=== PATIENT | male | born 1965 | race Caucasian/White ===

== ENCOUNTER 2016-05-11 03:12 | Emergency (ER) | payer OTHER ==
[~2016-05-11] VITALS: Ht 180.3 cm; Wt 84.6 kg
[2016-05-11 03:15] VITALS: BP 167/91; PULSE 93; RESP 16; TEMP 97.8; O2SAT 99
--- NOTE | 2016-05-11 03:55 | PD ---
HPI Chief Complaint: Headache Time Seen by Provider: 03:37 Travel History International Travel<30 days: No Contact w/Intl Traveler<30days: No Traveled to known affect area: No History of Present Illness HPI The patient is a 51-year-old male that just moved here from [facility] and who has Parkinson's disease complains of pain on the right side of his head in the trigeminal nerve area for 2 days. The pain is of gradual onset. He also noted an erythematous papular rash. He has had chickenpox as a child. He did not get the zoster immunization. He denies any fever. He denies any redness or irritation of the right eye. PFSH Past Medical History Diminished Hearing: No Parkinson's Disease: Yes Tetanus Vaccination: Unknown Influenza Vaccination: No Social History Alcohol Use: Yes (OCCASSIONAL) Tobacco Use: No Substance Use: No Allergies-Medications (Allergen,Severity, Reaction): Coded Allergies: Penicillin (Verified Allergy, Severe, Hives, 05/11/16) Reported Meds & Prescriptions Reported Meds & Active Scripts Active Percocet (Oxycodone-Acetaminophen) 7.5-325 mg Tab 1 Tab PO Q6H PRN Zovirax (Acyclovir) 800 Mg Tab 800 Mg PO 5 TIMES A DAY 7 Days Prednisone 50 Mg Tab 50 Mg PO BID Review of Systems Except as stated in HPI: all other systems reviewed are Neg Physical Exam Narrative GENERAL: The patient is alert, oriented 3 in moderate apparent distress with his right facial pain. The blood pressure is 167/91 with a pulse rate of 93 but the vital signs are otherwise normal. SKIN: Warm and dry. There is an erythematous, papular rash over the trigeminal area on the right. Lesions are seen on the chin and on the right scalp and on the right malar areas of the face. HEAD: Atraumatic. Normocephalic. EYES: Pupils equal and round. No scleral icterus. No injection or drainage. There is no evidence of corneal involvement. ENT: No nasal bleeding or discharge. Mucous membranes pink and moist. NECK: Trachea midline. No JVD. CARDIOVASCULAR: Regular rate and rhythm. No murmur appreciated. RESPIRATORY: No accessory muscle use. Clear to auscultation. Breath sounds equal bilaterally. GASTROINTESTINAL: Abdomen soft, non-tender, nondistended. Hepatic and splenic margins not palpable. MUSCULOSKELETAL: No obvious deformities. No clubbing. No cyanosis. No edema. NEUROLOGICAL: Awake and alert. No obvious cranial nerve deficits. Motor grossly within normal limits. Normal speech. PSYCHIATRIC: Appropriate mood and affect; insight and judgment normal. Data Data Last Documented VS Vital Signs Date Time Temp Pulse Resp B/P Pulse Ox O2 Delivery O2 Flow Rate FiO2 05/11/16 03:15 16 99 Room Air 05/11/16 03:15 97.8 93 167/91 Orders Ketorolac Inj (Toradol Inj) (05/11/16 04:00) Ketorolac Inj (Toradol Inj) (05/11/16 04:00) Prednisone (Deltasone) (05/11/16 04:00) [facility] Medical Decision Making Medical Screen Exam Complete: Yes Emergency Medical Condition: Yes Medical Record Reviewed: Yes Differential Diagnosis Herpes zoster, contact dermatitis, allergic rash, viral exanthem, corneal involvement of herpes Narrative Course The rash does not cross midline and appears to be limited to the right trigeminal nerve. There is no evidence of herpetic keratitis. Diagnosis Primary Impression: Herpes zoster Additional Instructions: As we discussed, if you get redness, pain, foreign body sensation in her right eye you should see an hall cleaner immediately. Scripts Oxycodone-Acetaminophen (Percocet)7.5-325 mg Tab1 Tab PO Q6H PRN (PAIN) #30 TAB Ref 0 Prov:Jose Richardson MD 05/11/16 Acyclovir (Zovirax)800 Mg [id number] Mg PO 5 TIMES A DAY 7 Days Ref 0 Prov:Jose Richardson MD 05/11/16 Prednisone 50 Mg Tab50 Mg PO BID #12 TAB Ref 0 Prov:Jose Richardson MD 05/11/16 Disposition: 01 DISCHARGE HOME Condition: Stable Jose Richardson MD May 11, 2016 03:55
[2016-05-11] MEDS ORDERED: KETOROLAC TROMETHAMINE 60 MG/2 ML (IM) VIAL IM ONE ×2 (04:00)
[2016-05-11] MEDS ORDERED: predniSONE 20 MG TAB PO ONE (04:00)
[2016-05-11] MEDS ORDERED: PRED50 PO (04:20)
[2016-05-11] MEDS ORDERED: ACYC-101 PO (04:20)
[2016-05-11] MEDS ORDERED: PERC7.5T13 PO (04:20)
[2016-05-11 04:27] VITALS: BP 151/98; PULSE 82; RESP 17; O2SAT 100
== END 2016-05-11 04:50 | disposition home or self-care (01) ==
LOC: PHED 03:12
DX: B02.9 Zoster without complications (principal); G20 Parkinson's disease
CPT/HCPCS: 96372; 99283; J1885; J7512